=== PATIENT | female | born 1995 | race Caucasian/White ===

== ENCOUNTER 2020-02-25 07:10 | Inpatient (IN) | payer OTHER ==
[~2020-02-25] VITALS: Ht 160 cm; Wt 86.0 kg
--- NOTE | 2020-02-25 10:16 | NUR ---
02/25/20 1016 Sheets,Sidra 1004 PT ARRIVED TO PACU ON RA, VSS. PT DENIES PAIN AND NAUSEA. 1010 BABY TO BREAST FEEDING WITH FBC RN AT BEDSIDE.
--- NOTE | 2020-02-26 13:12 | PR ---
[facility] [address] [place] [address] Signed PP Progress Notes Datetime Report Generated by CPN: 02/26/2020 13:12 SUBJECTIVE: [id number] Pain: Within normal limits Nausea/Vomiting: Present Vital Signs: [id number] Vital Signs: Reviewed; Within Normal Limits Notable Details: PP Hgb/Hct = 8.2/25.8 EXAM: [id number] Abdomen/Uterus: Normal Lochia: Normal Extremities: Normal Incision: Normal IMPRESSION/PLAN/PROCEDURES: [id number] Impression: Normal progression Plan: Continue present management Procedures: None Progress Notes: Doing well without complalint. Tolerating food well. Signing Physician: Pauline Ralph MD Copies: ~ *Electronically Signed* 02/26/20 1312 PAULINE RALPH MD PATIENT NAME: GUSTAVO MARSH PROGRESS NOTE DATE OF : [birth year] PHYSICIAN: PAULINE RALPH MD RPT #: [id number] REPORT IS CONFIDENTIAL AND NOT TO BE RELEASED WITHOUT AUTHORIZATION
--- NOTE | 2020-02-27 12:23 | PR ---
[facility] [address] [place] [address] Signed PP Progress Notes Datetime Report Generated by CPN: 02/27/2020 12:23 SUBJECTIVE: [id number] Pain: Within normal limits Nausea/Vomiting: Denies Vital Signs: [id number] Vital Signs: Reviewed; Within Normal Limits Notable Details: PP Hgb/Hct = 8.2/25.8 EXAM: [id number] Abdomen/Uterus: Normal Lochia: Normal Extremities: Normal Incision: Normal IMPRESSION/PLAN/PROCEDURES: [id number] Impression: Normal progression Plan: Discharge Procedures: None Progress Notes: Doing well, no complaints, ready to go home. Signing Physician: Pauline Ralph MD Copies: ~ *Electronically Signed* 02/27/20 1223 PAULINE RALPH MD PATIENT NAME: GUSTAVO MARSH PROGRESS NOTE DATE OF : [birth year] PHYSICIAN: PAULINE RALPH MD RPT #: [id number] REPORT IS CONFIDENTIAL AND NOT TO BE RELEASED WITHOUT AUTHORIZATION
--- NOTE | 2020-02-27 12:27 | OR ---
[address] [address] Signed DATE OF OPERATION: 02/25/2020 SURGEON: Laith Wilcox MD PREOPERATIVE DIAGNOSES: 1. Previous section. 2. Spontaneous rupture of membranes. 3. Term . POSTOPERATIVE DIAGNOSES: 1. Previous section. 2. Spontaneous rupture of membranes. 3. Term . PROCEDURE: Repeat low-transverse segment section, delivery of live female infant. AUTOMATION TECHNICIAN: Drea Brooks D.O. ANESTHESIA: Spinal. ESTIMATED BLOOD LOSS: 700 mL. COMPLICATIONS: None. DRAINS: Hawley to bladder. FINDINGS: Live female infant, Apgars 9 and 9. Weight 6 pounds 14 ounces. Uterus had a very thin lower uterine segment with the bladder somewhat elevated. Otherwise, no adhesions noted. Both tubes and ovaries were normal. DESCRIPTION OF PROCEDURE: The patient was brought to the operating room, placed in supine position. After adequate spinal anesthesia was obtained, she was prepped and draped in the usual sterile Electronically Signed By: LAITH WILCOX MD 02/27/20 1227 PATIENT NAME: GUSTAVO MARSH OPERATIVE REPORT DATE OF : [birth year] REPORT #: [id number] PHYSICIAN: LAITH WILCOX MD PCP: DREA BROOKS DO REPORT IS CONFIDENTIAL AND NOT TO BE RELEASED WITHOUT AUTHORIZATION [address] [address] Signed fashion. Hawley catheter was placed in the bladder. Pfannenstiel skin incision was made with a scalpel extended through subcutaneous tissue with Bovie and scalpel. The fascia was nicked with scalpel and extended in transverse fashion using curved scissors. The underlying abdominal musculature was bluntly and sharply from the fascia above and below the incision. The abdominal musculature was bluntly and sharply along the midline. The peritoneum was grasped with hemostats, elevated, and nicked with curved scissors and partially extended in vertical fashion using scissors and then finger dissection used to increase opening size. An John self-retaining retractor was inserted into the incision and tightened in place. The lower uterine segment was observed and noted to have a very thin, slightly bulging area in the midline with the bladder somewhat elevated up the lower uterine segment, but away from the thin area. The thin area was then nicked with scalpel and extended in transverse fashion using finger dissection. Bulging bag of clear fluid, came from the incision and was immediately ruptured. The was noted to be in a vertex LOT presentation. The 's head easily delivered from the incision. The rest of the infant was easily delivered from the incision. The cord was doubly clamped and cut and passed off table in good condition awaiting nurse. Cord blood was obtained. A section of the cord removed if needed later and then the placenta manually removed. Uterine cavity was explored with a lap pad to remove any retained membranes. An angle stitch of 0-Monocryl was placed at one in the incision and a running locking stitch of 0-Monocryl starting at the other end used to close the incision. In the midline, the lower segment was quite thin and the bladder was close to the incision, so care was taken to not take too much of the lower segment, but enough so that the incision could be closed. After closing the incision in one layer, the bladder was back filled with sterile saline through the Hawley catheter, so that the dome of the bladder could be identified. There was approximately 1-2 cm distance between the incision and the bladder, so a second running stitch of 0-Monocryl was used to imbricate the first layer, taking care especially in the midline to imbricate the incision, but to stay above the dome of the bladder. The bladder was re-drained, noted to have a clear urine with no blood and there were no holes in the bladder when filling the bladder. At this point, the entire pelvis was irrigated, suctioned, and examined, any bleeding spots cauterized with the Bovie. The John self-retaining retractor was then removed and then sheet of ACell placed over lower uterine segment. The anterior wall of the peritoneum was then closed using running stitch of 2-0 Vicryl suture. The abdominal musculature was reapproximated using interrupted stitch of 0-Vicryl suture. Abdominal wall incision was irrigated, suctioned, examined and any bleeding spots cauterized with the Bovie. Because of the scar tissue, there were numerous small raw areas, some of which had slight oozing. This was controlled until no obvious bleeding was seen, but there are still many raw areas, so the entire area was sprinkled with Ricky. Good hemostasis was noted. A powdered ACell was then sprinkled over the abdominal musculature and then the fascia closed using two running stitch of 0-Vicryl suture meeting in the midline. Subcutaneous tissue was irrigated, suctioned, and examined, and any bleeding spots cauterized with the Bovie. Electronically Signed By: LAITH WILCOX MD 02/27/20 1227 PATIENT NAME: GUSTAVO MARSH OPERATIVE REPORT DATE OF : [birth year] REPORT #: [id number] PHYSICIAN: LAITH WILCOX MD PCP: DREA BROOKS DO REPORT IS CONFIDENTIAL AND NOT TO BE RELEASED WITHOUT AUTHORIZATION [facility] [address] [place] [address] Signed The subcutaneous tissue was then closed using interrupted stitches of 3-0 Vicryl suture. The skin reapproximated using skin clips. The patient tolerated the procedure well and went to the recovery room in good condition. The sponge, needle, and instrument counts were correct at the end of the procedure. MD YAYO Noriega/BROL /[id number] Copies: ~ Electronically Signed By: LAITH WILCOX MD 02/27/20 1227 PATIENT NAME: GUSTAVO MARSH OPERATIVE REPORT DATE OF : [birth year] REPORT #: [id number] PHYSICIAN: LAITH WILCOX MD PCP: DREA BROOKS DO REPORT IS CONFIDENTIAL AND NOT TO BE RELEASED WITHOUT AUTHORIZATION
== END 2020-02-27 12:59 | disposition home or self-care (01) | DRG 788 ==
LOC: FBCO 07:10 → FBC 08:10
PROVIDERS: Obstetrics & Gynecology; ADMIT General Practice
PROC: 10D00Z1 Extraction of Products of Conception, Low, Open Approach (ICD-10-PCS; principal; 2020-02-25 08:42)
DX: O34.211 Maternal care for low transverse scar from previous cesarean delivery (principal); O32.2XX0 Maternal care for transverse and oblique lie, not applicable or unspecified; N85.8 Other specified noninflammatory disorders of uterus; Z37.0 Single live birth; O90.81 Anemia of the puerperium; D64.9 Anemia, unspecified; O99.824 Streptococcus B carrier state complicating childbirth; O28.2 Abnormal cytological finding on antenatal screening of mother; Z3A.38 38 weeks gestation of pregnancy
CPT/HCPCS: 01961; 36415; 84112; 85027; A9270; J0690; J1885; J2001; J2274; J2300; J2405; J2590

== ENCOUNTER 2025-04-03 08:18 | Emergency (ER) | payer OTHER ==
[~2025-04-03] VITALS: Ht 160 cm; Wt 84.7 kg
[2025-04-03] MEDS ORDERED: LIDODERM1 EACH TOP (10:18)
[2025-04-03] MEDS ORDERED: METHYLPREDNISOLO4 M1 PO (10:18)
[2025-04-03] MEDS ORDERED: CYCLOBENZAPRINE10 MG PO (10:18)
[2025-04-03] MEDS ORDERED: IBU600 MG PO (10:18)
[2025-04-03] MEDS ORDERED: LIDOCAINE HCL 4% 1 EACH PATCH TD ONE (10:30)
[2025-04-03] MEDS ORDERED: IBUPROFEN 600 MG TAB PO ONE (10:30)
[2025-04-03 11:44] VITALS: BP 142/105
[2025-04-03] MEDS ORDERED: LIDOCAINE PATCH REMOVAL 1 EA TD SCH (21:00)
== END 2025-04-03 11:44 | disposition home or self-care (01) ==
LOC: ED 08:18
DX: M54.50 Low back pain, unspecified (principal); Z87.891 Personal history of nicotine dependence
CPT/HCPCS: 99283; A9270